=== PATIENT | male | born 1955 | race Caucasian/White ===

== ENCOUNTER → 2017-03-29 | Outpatient (CLI) | payer OTHER ==
--- NOTE | 2017-03-29 13:20 | KCIC ---
Examination: AP view of the bilateral knees, frontal view of the pelvis, frontal view of the bilateral hands, frontal view of the bilateral feet, lateral view of the cervical spine. HISTORY: History of arthritis series, pain in the knees, shoulders, hands. COMPARISON: None available Findings: Bilateral feet: Mild degenerative changes identified in the tarsal joints and interphalangeal joints bilaterally. Bilateral hands: Severe degenerative changes with osteophyte formation identified at the first carpometacarpal joints. Mild to moderate degenerative changes of bilateral carpal joints. No evidence of obvious erosions. Probable old healed fracture of the right fifth metacarpal neck. Cervical spine: Moderate degenerative changes identified cervical spine at C3-C4 vertebral level. Small anterior osteophyte formation identified at C3, C4, C5 vertebral levels. Pelvis: Bilateral femoral heads within the acetabula. Mild degenerative changes identified in the bilateral hip joints Bilateral knees: Mild joint space loss identified in the medial, lateral compartments likely degeneration. Impression: Degenerative changes as described above. Electronically signed by: Brien Kee MD (03/29/2017 1:17 PM) [facility]
== END | disposition home or self-care (01) ==
LOC: KCIC 10:31
PROVIDERS: ATTEND Internal Medicine Rheumatology
DX: M25.712 Osteophyte, left shoulder (principal); M25.711 Osteophyte, right shoulder; M13.812 Other specified arthritis, left shoulder; M13.811 Other specified arthritis, right shoulder; M25.562 Pain in left knee; M25.561 Pain in right knee; M25.542 Pain in joints of left hand; M25.541 Pain in joints of right hand
CPT/HCPCS: 72020; 72170; 73120; 73565; 73620

== ENCOUNTER → 2019-10-17 | Outpatient (CLI) | payer MEDICARE, OTHER ==
--- NOTE | 2019-10-17 16:28 | KCIC ---
EXAM: Bilateral hand and wrist DATE: 10/17/2019 12:00 AM INDICATIONS: Polyarthralgia COMPARISON: No prior FINDINGS: PA, AP, oblique and lateral views of the hand and wrist bilaterally show normal symmetric bone density. Advanced thumb CMC joint osteoarthritis bilaterally joint space effacement and associated proliferative change. Prominent cystic changes are seen at the left radiocarpal joint. Scattered IP joint degenerative changes particularly distally with joint space narrowing and small osteophytes, most prominent at the index and middle finger DIP joints bilaterally. Old fracture deformity left second and third middle phalanx, right fifth metacarpal and third finger middle phalanx. Negative erosive type changes. Negative periarticular soft tissue calcifications or chondrocalcinosis. Negative focal soft tissue swelling. Ulnar minus variance bilaterally. Of note, lunotriquetral evaluation bilaterally is limited, likely from underlying lunotriquetral ligamentous injury or projection. IMPRESSION: No radiographic findings of inflammatory or erosive arthropathy. Multifocal degenerative changes most prominent at the thumb CMC joint, left radiocarpal joint and scattered IP joints. Ulnar minus variance bilaterally. Of note, lunotriquetral alignment is not accurately assessed, underlying lunotriquetral ligamentous injury is excluded. Electronically signed by: Karsten Clifford MD (10/17/2019 4:25 PM) [id number]
--- NOTE | 2019-10-17 16:53 | KCIC ---
Three-view bilateral feet radiographs 10/17/2019 CLINICAL HISTORY: Bilateral foot pain. AP, lateral and oblique digital radiographs of both feet were obtained. No fracture or dislocation of either foot is seen. Moderate to severe degenerative changes are seen throughout the interphalangeal joints of both feet. These degenerative changes consist of joint compartment narrowing, subchondral sclerosis and associated osteophyte formation. Mild to moderate degenerative changes are seen involving the MTP and tarsometatarsal joints of both feet. No erosive changes or subluxation is noted. Mild to moderate enthesophyte formation is seen involving the posterior left and right calcaneus. IMPRESSION: Degenerative changes are seen involving both feet as discussed above. No acute osseous abnormality is seen. Electronically signed by: Marcial Bronson MD (10/17/2019 4:50 PM) [facility]
--- NOTE | 2019-10-17 16:58 | KCIC ---
AP and lateral spot lumbar spine radiographs to bilateral oblique views 10/17/2019 CLINICAL HISTORY: Low back pain which radiates down the left leg. Standing AP, two lateral and bilateral oblique digital radiographs of the lumbar spine were obtained. Minimal S-shaped curvature of the thoracolumbar spine is seen. Degenerative changes are seen involving the lower thoracic and throughout the lumbar disc spaces consisting of varying degrees of disc space narrowing, vertebral endplate sclerosis and mild to moderate anterior vertebral body osteophyte formation. Degenerative changes are seen involving the facet joints throughout the mid and lower lumbar disc spaces. No fracture or subluxation of the lumbar vertebrae seen. Atherosclerotic calcification of the abdominal aorta and its branches is noted. IMPRESSION: Degenerative changes are seen involving the lumbar spine as discussed above. No acute osseous abnormality is seen. Electronically signed by: Marcial Bronson MD (10/17/2019 4:54 PM) [facility]
== END | disposition home or self-care (01) ==
LOC: KCIC 10:33
PROVIDERS: ATTEND Internal Medicine
DX: M47.816 Spondylosis without myelopathy or radiculopathy, lumbar region (principal); M19.042 Primary osteoarthritis, left hand; M19.041 Primary osteoarthritis, right hand; M19.072 Primary osteoarthritis, left ankle and foot; M19.071 Primary osteoarthritis, right ankle and foot; M25.742 Osteophyte, left hand; M25.741 Osteophyte, right hand; M25.774 Osteophyte, right foot; M25.775 Osteophyte, left foot; I70.0 Atherosclerosis of aorta
CPT/HCPCS: 72110; 73130; 73630